=== PATIENT | male | born 1980 | race Caucasian/White ===

== ENCOUNTER 2018-01-08 18:27 | Emergency (ER) | payer OTHER ==
[~2018-01-08] VITALS: Ht 177.8 cm; Wt 74.8 kg
[2018-01-08 19:13] LABS: ABSOLUTE BASOPHIL COUNT 0.1 /CUMM (0.0-0.2); ABSOLUTE EOSINOPHIL COUNT 0.2 /CUMM (0.0-0.7); ABSOLUTE GRANULOCYTE CT 2.3 /CUMM (1.4-6.5); ABSOLUTE LYMPH COUNT 2.7 /CUMM (1.2-3.4); ABSOLUTE MONOCYTE COUNT 0.8 /CUMM (0.10-0.60); BASOPHIL % 0.8 % (0.0-2.0); EOSINOPHIL % 3.4 % (0-5); HEMATOCRIT 47.1 % (42-52); MEAN CORPUSCULAR HGB 35.1 PG (27.0-31.0); MEAN CORPUSCULAR HGB CONC 34.4 G/DL (33.0-37.0); MEAN CORPUSCULAR VOLUME 101.9 FL (80.0-94.0); MEAN PLATELET VOLUME 8.8 FL (7.4-10.4); PLATELET COUNT 206 /CUMM (130-400); RBC DISTRIBUTION WIDTH 12.9 % (11.5-14.5); RED BLOOD CELL CT 4.62 /CUMM (4.70-6.10); WHITE BLOOD CELL COUNT 6.2 /CUMM (4.8-10.8)
--- NOTE | 2018-01-08 20:08 | ED GENERAL ADULT ---
History of Present Illness General Chief Complaint: ETOH/Drug Related Complaint Stated Complaint: BIBA FOR ETOH Source: patient Exam Limitations: no limitations Vital Signs & Intake/Output Vital Signs & Intake/Output Vital Signs Date Time Temp Pulse Resp B/P B/P Pulse O2 O2 Flow FiO2 Mean Ox Delivery Rate 01/09 0636 98.0 76 18 115/61 98 Room Air 01/09 0600 98.0 76 18 115/61 01/09 0250 98.1 70 16 132/80 97 Room Air 01/09 0200 98.1 70 16 132/80 01/08 2254 97.9 71 20 117/78 98 Room Air 01/08 2048 97.7 94 20 130/82 100 Room Air 01/08 1829 97.2 82 15 124/79 94 Room Air Room Air ED Intake and Output 01/09 0000 01/08 1200 Intake Total Output Total Balance Patient 165 lb Weight Weight Estimated Measurement Method Allergies Coded Allergies: No Known Allergies (01/08/18) Triage Note: PT BIBA FROM HOME ON POLICE PAPER FOR ETOH AND LAC TO R HAND. PT CALM AND COOPERATIVE ON ARRIVAL. DENIES DRUG USE. Triage Nurses Notes Reviewed? yes HPI: 37-year-old male with no past medical history presenting with alcohol intoxication. Patient was brought in by police earlier tonight after they were called by the patient's . Per the patient he was drinking 2 beers IPAs with his last drink at 2 PM today. He states that his came home and found him drinking and she became very angry. She told him she would call the certified legal secretary specialist and she locked him out of the house. The patient tried to enter the home through the garage at which time he sustained a minor last duration to his right forearm. He states he sat down in the garage and waited for the police to arrive calmly. Patient does admit that his drinking is a problem however he feels fully functional. 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 He reports drinking every 3 days or so. He reports consuming 4-5 beers in 1-2 drinks of whiskey on these days. He states he usually drinks alone and has been doing so for the past 6-8 months. He denies any history of alcohol withdrawal including any alcohol withdrawal seizures. He has never attended an alcohol rehab or gone through any detox. He states he did notify his primary care physician Devonte Jordan MD. They have been working together to find an IOP for the patient. He states he has 2 possible locations with intake appointment set up both January 17 and . He states that his has told him he has a drinking problem and that she requires he attended rehab. Although patient does not feel his drinking is to this level he is in agreement to go to an outpatient rehab. Patient states he would like to be discharged tonight back home after his laceration is attended to so that he can proceed with his outpatient plans for alcohol rehab. He denies any recent illness or any other medical issues at this time. Of note patient does report taking Xanax as needed for sleep. He states he receives this from his PCP. (Estefania Lozoya MD) Past History Travel History Traveled to [place] past 21 day No Medical History Neurological: NONE EENT: NONE Cardiovascular: NONE Respiratory: NONE Gastrointestinal: NONE Hepatic: NONE Renal: NONE Musculoskeletal: NONE Psychiatric: NONE Endocrine: NONE Blood Disorders: NONE Cancer(s): NONE TOOL AND DIE ENGINEER/Reproductive: NONE Isolation History: Standard Psychosocial History Where do you live Home Who do you live with Spouse Services at Home None What is your primary language Belgian Tobacco Use: Current Daily Use Daily Tobacco Use Amount/Type: => 5 Cigarettes daily ETOH Use: denies use (4-5 beers/1-2 whiskey drinks), heavy use Illicit Drug Use: denies illicit drug use (Estefania Lozoya MD) Medical History Any Pertinent Medical History? see below for history Surgical History Surgical History: non-contributory Family History Hx Contributory? No (Fabrizio Humphries MD) Review of Systems Review of Systems Constitutional: Reports: no symptoms. EENTM: Reports: no symptoms. Respiratory: Reports: no symptoms. Cardiovascular: Reports: no symptoms. GI: Reports: no symptoms. Genitourinary: Reports: no symptoms. Musculoskeletal: Reports: no symptoms. Skin: Reports: no symptoms. Neurological/Psychological: Reports: see HPI, confusion. Hematologic/Endocrine: Reports: no symptoms. Immunologic/Allergic: Reports: no symptoms. All Other Systems: Reviewed and Negative (Fabrizio Humphries MD) Physical Exam Physical Exam General Appearance: well developed/nourished, alert, awake, anxious, intoxicated Head: atraumatic, normal appearance Eyes: Bilateral: normal appearance, PERRL, EOMI. Ears, Nose, Throat: normal pharynx, normal ENT inspection, hearing grossly normal Neck: normal inspection, supple, full range of motion, no midline tenderness Respiratory: normal breath sounds, chest non-tender, no respiratory distress, quiet respiration, lungs clear Cardiovascular: regular rate/rhythm, normal peripheral pulses, norml femoral pulses equa Peripheral Pulses: 4+ carotid (R), 4+ carotid (L) Gastrointestinal: normal bowel sounds, soft, non-tender, no organomegaly Back: normal inspection, normal range of motion Extremities: normal capillary refill, normal range of motion, no edema, Superficial right forearm laceration Neurologic/Psych: no motor/sensory deficits, awake, alert, oriented x 3, normal gait, normal mood/affect, animal scientist II-XII nml as tested Reflexes: 2+: bicep (R), bicep (L). Skin: normal color Lymphatic: no anterior cervical bjorn Core Measures ACS in differential dx? No CVA/TIA Diagnosis: No Sepsis Present: No Sepsis Focused Exam Completed? No (Kristel TANG,Fabrizio) Progress Differential Diagnoses I considered the following diagnoses in my evaluation of the patient: [etoh abuse/intoxication, small superficial lac to right forearm] 21:09 will irrigate superficial laceration to right forearm and apply Steri- Strips. Patient informed that while he is intoxicated he will need to remain in the emergency department until sober. At this time he is not suicidal or homicidal. Will recheck alcohol levels in a few hours and reassess at that time for suicidal ideation. Patient is cooperative and is in agreement with this process. Will plan to discharge patient home once his alcohol level is 80 or below and no suicidal ideation. Plan of Care: Orders Procedure Date/time Status Regular Diet 01/09 B Active Continuous Observation Monitor 01/08 1830 Active URINE DRUGS OF ABUSE 01/08 1830 Complete ETHANOL 01/08 1830 Complete COMPREHENSIVE METABOLIC PANEL 01/08 1830 Complete CBC WITHOUT DIFFERENTIAL 01/08 1830 Complete ED CRISIS PSYCH CONSULT 01/08 1830 Active Laboratory Tests 01/08/18 1902: Anion Gap 10, Estimated GFR > 60, BUN/Creatinine Ratio 9.0, Glucose 84, Calcium 9.7, Total Bilirubin 0.3, AST 91 H, ALT 146 H, Alkaline Phosphatase 52, Total Protein 7.7, Albumin 5.0, Globulin 2.7, Albumin/Globulin Ratio 1.9, CBC w Diff NO MAN DIFF REQ, RBC 4.62 L, MCV 101.9 H, MCH 35.1 H, MCHC 34.4, RDW 12.9, MPV 8.8, Gran % 38.0 L, Lymphocytes % 44.4, Monocytes % 13.4 H, Eosinophils % 3.4, Basophils % 0.8, Absolute Granulocytes 2.3, Absolute Lymphocytes 2.7, Absolute Monocytes 0.8 H, Absolute Eosinophils 0.2, Absolute Basophils 0.1, Serum Alcohol 268.0 01/08/18 1850: Urine Opiates Screen < 100, Methadone Screen < 40, Barbiturate Screen < 60, Ur Phencyclidine Scrn < 6.00, Amphetamines Screen < 100, U Benzodiazepines Scrn < 85, Urine Cocaine Screen < 50, Urine Cannabis Screen < 5.00 (Estefania Lozoya MD) Differential Diagnoses I considered the following diagnoses in my evaluation of the patient: Initial ED EKG: none (Fabrizio Humphries MD) Departure Departure Condition: Stable Referrals: Gerard Jordan MD (PCP/Family) (Estefania Lozoya MD) Departure Disposition: HOME OR SELF CARE Clinical Impression Primary Impression: Alcohol abuse with intoxication Secondary Impressions: Laceration of forearm, right Departure Forms: Customer Survey DETOX FACILITIES LIST General Discharge Information Resident Co-Sign Statement Statement: ED Attending supervision documentation- x I saw and evaluated the patient. I have also reviewed all the pertinent lab results and diagnostic results. I agree with the findings and the plan of care as documented in the Resident's documentation. [] I have reviewed the ED Record and agree with the Resident's documentation. [] Additions or exceptions (if any) to the Resident's note and plan are summarized below: [] (Fabrizio Humphries MD) Departure Comments 01/09/18 The patient was signed out to me by Dr. Humphries. He has been seen evaluated and cleared by crisis. He is comfortable with the discharge plan and will follow-up at [facility]. (Fredi Bob DO) Procedures Laceration/Wound Repair Laceration/Wound Repair: Wound Location: upper extremity Wound's Depth, Shape: linear Wound Length (cm): 1.5 Wound Explored: clean, irrigated extensively Irrigated w/ Saline (ccs): 200 Betadine Prep? Yes Anesthesia: 1% lidocaine Volume Anesthetic (ccs): 3 Wound Debrided: minimal Wound Repaired With: sutures Suture Size/Type: 5:0, nylon Number of Sutures: 2 Layer Closure? No Sterile Dressing Applied: Yes Splint Applied? No Tetanus Status: up to date (TODAY) (Uche LUCAS,Richard) Critical Care Note Critical Care Note Critical Care Time: non-applicable (Fabrizio Humphries MD) Critical Care Time: non-applicable (Fabrizio Humphries MD)
--- NOTE | 2018-01-09 08:47 | ED PSYCH CRISIS CONSULTATION ---
Crisis Consult Basic Assessment Date of Consult: 01/09/18 Responsible Person/Accompanied By: self Insurance Authorization: Insurance #1: Insurance name: [employer] C&A Phone number: Policy number: [id number] Group number: Authorization number: ED Provider: Patient's ED Provider: Estefania Lozoya MD Primary Care Physician: Patient's PCP: Gerard Jordan MD PCP's Current Psychiatrist: none Chief Complaint: ETOH/Drug Related Complaint Patient's Quote: "I drank too much and my came home from work and locked me out" Present Illness: Pt is a 37 year old male BIBA on PEER for being intoxicated and being "very depressed". Pt's BAL was 268 upon arrival to the ED. Patient was seen this morning by crisis. Pt states yesterday he was drinking, his came home from work, they got into an arguement about his drinking, she locked him out of the house and called the police. Pt states this is not the first time is has locked him out of the house. He states the last time, he slept in his car as he' s not confrontational. What is new, is that she called the police. Patient has been for 3 years and they have a 2 year old daughter who was napping during this incident. He states they never have any arguements in front of their child, door are always closed. He states his mom and dad fought a lot when he was a kid before they got so he stated he would never be like that around his own child. Pt states there is never any physical alteractions between he and his . The major reason for their martial discord is related to the patient's increased drinking. 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 Pt states he used to like his job but it got stressful working 60-70 hours per week so he left. Pt states his father and step mother came up from [facility] last week to visit. He states it was a good visit and he had not drank at all while they were staying with him. His parents left on Saturday and he started drinking again yesterday. He drinks mostly liquor (vodka w/ juice) as he states beer makes him full and wine makes him sick. He states that he is unsure of the number of drinks he has because he looses count and after a while "it just hits him". Pt states he hasn't blacked out his college. He has no signs of withdrawal, no hx ofs seizures and CIWA is currently 0. Pt states he sought help to stop drinking from his PCP. He states the PCP assessed him for not needing detox and told him to get into an IOP. Pt states he has two appointments set up at [place] and at [place] (01/17 and 01/20, respectively) . He stated he wanted to do both intakes to see which one was better. However, now that he's here in the ED he is stating he would prefer to go to [place] as he lives in [place]. Pt denies SI/HI/AH/VH. Pt does have a cut on the top of his right wrist that is bandaged. When asked how that happened he said he broke glass trying to get back into the house. (Dr. Bob will provide 1 stitch to wound prior to discharge). When asked if it was a self harm attempt, pt stated, "isn't it in the wrong spot ?" then quickly apologized and stated he was sorry for being sarcastic. Pt denies past mental health treatment and past substance abuse treatment. Pt denies family mental health history, family history of suicide of substance abuse problems. He does state that [place] and referred to his father's community as a frat house. Crisis completed C-SSRS. Pt has the following risk factors: not recieving treatment, substannce dep. Pt has the following protective factors: identifies reason for living, responsibility to others/living with others, supportive network/family. Pt's protective factors greatly outweight his risk factors. Crisis discussed case with Dr. Sanchez, prescription eyeglass maker psychiatrist. Pt to be discharged to IOP intake. Crisis called our IOP to see if a sooner appointment is avialable and was informed that his appointment next Saturday (01/17) is the soonest appt as they are booked into January at this point. Pt to discharge to [facility] on 01/17/18 @ 10:00 a.m. Patient's [address]: [address] [place] [address] Other Phone Number: Who Do You Live With? Father Family/Informants Interviewed: attempted to reach , Diane Jacobo . No answer. Allergies - Coded Allergies: No Known Allergies (01/08/18) Laboratory Results: Laboratory Tests 01/08/18 1902: Anion Gap 10, Estimated GFR > 60, BUN/Creatinine Ratio 9.0, Glucose 84, Calcium 9.7, Total Bilirubin 0.3, AST 91 H, ALT 146 H, Alkaline Phosphatase 52, Total Protein 7.7, Albumin 5.0, Globulin 2.7, Albumin/Globulin Ratio 1.9, CBC w Diff NO MAN DIFF REQ, RBC 4.62 L, MCV 101.9 H, MCH 35.1 H, MCHC 34.4, RDW 12.9, MPV 8.8, Gran % 38.0 L, Lymphocytes % 44.4, Monocytes % 13.4 H, Eosinophils % 3.4, Basophils % 0.8, Absolute Granulocytes 2.3, Absolute Lymphocytes 2.7, Absolute Monocytes 0.8 H, Absolute Eosinophils 0.2, Absolute Basophils 0.1, Serum Alcohol 268.0 01/08/18 1850: Urine Opiates Screen < 100, Methadone Screen < 40, Barbiturate Screen < 60, Ur Phencyclidine Scrn < 6.00, Amphetamines Screen < 100, U Benzodiazepines Scrn < 85, Urine Cocaine Screen < 50, Urine Cannabis Screen < 5.00 Past History Past Medical History Neurological: NONE EENT: NONE Cardiovascular: NONE Respiratory: NONE Gastrointestinal: NONE Hepatic: NONE Renal: NONE Musculoskeletal: NONE Psychiatric: alcohol dependence Endocrine: NONE Blood Disorders: NONE Cancer(s): NONE INSURANCE SALES REPRESENTATIVE/Reproductive: NONE Past Surgical History Surgical History: non-contributory Psychosocial History Strengths/Capabilities: Pt sought out treatment on his own supportive father and step mother Physical Limitations (Interventions): none observed Psychiatric Treatment History Psych Treatment Psychiatric Treatment No Diagnosis by History: none Substance Use/Abuse History Drug Use/Abuse Substances Used/Abused Yes Substance Used/Abused Alcohol First Use 21 Last Used 01/08/18 How much used/taken pt is unsure How often increasing to daily For how long increased recently Route of use po Substance Abuse Treatment Substance Abuse Treatment Past Substance Abuse [place] No Current Mental Status Mental Status Orientation: Person, Place, Situation Affect: Appropriate Speech: Normal Neuro-vegetative: Loss of Interest Appearance Appearance- Dress/Hygiene: pt presents in hospital scrubs no remarkable features Behaviors Thought Process: WNL Thought Content: WNL Memory: WNL Insight: Fair SI/HI Risk Assessment Past Suicidal Ideation/Attempts No Current Suicidal Ideation/Att No Past Homicidal Ideation/Att: No Current Homicidal Ideation/Attempts No Degree of Intent: None Gravely Disabled: Poor Impulse Control Risk Factors: substance abuse, poor impulse control, male Lethality Ratin PTSD Checklist PTSD Done? patient declined ED Management Sitter: Yes Restraints: No DSM5/PS Stressors/Medical Prob Diagnosis' (DSM 5, Stressors, Medical): F10.20 Alcohol Use Disorder F32.9 Unspecified Depressive Disorder Stressors: recently left job due to stress at job, martial discord Current GAF: 45 Departure Disposition Psych Medical Clearance Date: 01/09/18 Medically Cleared at: 0730 Time Started: 0737 Time Ended: 0757 Psychiatrist Consulted: Dr. Christina Sanchez Date Disposition Established: 01/09/18 Time Disposition Established: 804 Plan for Disposition - Modality: IOP Facility: [facility] Follow-up Appt Date: 01/17/18 Follow-Up Appt Time: 1000 Rationale for Disposition: Pt to ED on PEER for etoh intoxication and domestic issue (not physical, verbal alteracation only). Pt is expressing some sadness related to how ETOH has impacted his life- left job due to stress and increased ETOH use, marital discord related to martial disorder. Pt denies SI/HI/AH/VH. Pt to follow up with IOP. Referrals Gerard Jordan MD (PCP/Family)
[2018-01-09 09:11] VITALS: BP 112/70
== END 2018-01-09 09:11 ==
LOC: ERH 18:27
PROVIDERS: Physician Assistant Medical
DX: S51.811A Laceration without foreign body of right forearm, initial encounter (principal); F10.129 Alcohol abuse with intoxication, unspecified; X58.XXXA Exposure to other specified factors, initial encounter; Y92.9 Unspecified place or not applicable; Y93.89 Activity, other specified
CPT/HCPCS: 80307; G0463; G0480; J2001

== ENCOUNTER 2018-01-10 21:59 | Emergency (ER) | payer OTHER ==
[~2018-01-10] VITALS: Ht 182.9 cm; Wt 83.9 kg
--- NOTE | 2018-01-10 22:03 | ED AMS/SEIZURE/WEAK/DIZZY ---
History of Present Illness General Chief Complaint: ETOH/Drug Related Complaint Stated Complaint: BIBA WITH ETOH Source: patient Exam Limitations: intoxication Vital Signs & Intake/Output Vital Signs & Intake/Output Vital Signs Date Time Temp Pulse Resp B/P B/P Pulse O2 O2 Flow FiO2 Mean Ox Delivery Rate 01/11 0315 97.8 89 18 122/64 96 Room Air 01/10 2257 Room Air 01/10 2225 98.6 104 18 127/68 95 Room Air ED Intake and Output 01/11 0000 01/10 1200 Intake Total 300 Output Total Balance 300 Intake, Oral 300 Patient 185 lb Weight Weight Reported by Patient Measurement Method Allergies Coded Allergies: No Known Allergies (01/08/18) Triage Nurses Notes Reviewed? yes Onset: Gradual Duration: hour(s): Timing: recent history Injury Environment: home Severity: moderate Modifying Factors: Improves With: rest. HPI: 37 yo gentleman presents volunatrily after argument with . "My doesn't like it when I drink.... We got into an argument... She called the police... They said I could go to the hospital or to usp.... I feel fine... I am not suicidal... I have a beautiful daughter and a lot to live for. " He has never had withdrawal seizures or symptoms. He drinks mainly in evenings 3-4 times per week. He denies other drugs. He notes that he is concerned about his drinking. He attended an AA meeting yesterday and is scheduled to enroll in an IOP program next week. He is otherwise well. Past History Travel History Traveled to [place] past 21 day No Medical History Any Pertinent Medical History? see below for history Neurological: NONE EENT: NONE Cardiovascular: NONE Respiratory: NONE Gastrointestinal: NONE Hepatic: NONE Renal: NONE Musculoskeletal: NONE Psychiatric: alcohol dependence Endocrine: NONE Blood Disorders: NONE Cancer(s): NONE BODY SHOP SUPERVISOR/Reproductive: NONE Tetanus Vaccine: 01/09/18 Surgical History Surgical History: non-contributory Psychosocial History Who do you live with Father Services at Home None What is your primary language Romansh Family History Hx Contributory? No Review of Systems Review of Systems Constitutional: Reports: no symptoms. EENTM: Reports: no symptoms. Respiratory: Reports: no symptoms. Cardiovascular: Reports: no symptoms. GI: Reports: no symptoms. Genitourinary: Reports: no symptoms. Musculoskeletal: Reports: no symptoms. Skin: Reports: no symptoms. Neurological/Psychological: Reports: no symptoms. Hematologic/Endocrine: Reports: no symptoms. Immunologic/Allergic: Reports: no symptoms. All Other Systems: Reviewed and Negative Physical Exam Physical Exam General Appearance: well developed/nourished, no apparent distress Head: atraumatic, normal appearance Eyes: Bilateral: normal appearance. Ears, Nose, Throat: normal pharynx, normal ENT inspection Neck: normal inspection, supple, full range of motion Respiratory: normal breath sounds, chest non-tender, no respiratory distress, quiet respiration, lungs clear Cardiovascular: regular rate/rhythm Gastrointestinal: normal bowel sounds, soft, non-tender, no organomegaly Back: normal inspection, normal range of motion Extremities: normal range of motion Neurologic/Psych: no motor/sensory deficits, awake, alert, oriented x 3 Skin: intact, normal color, warm/dry Core Measures ACS in differential dx? No CVA/TIA Diagnosis No Sepsis Present: No Sepsis Focused Exam Completed? No Progress Differential Diagnosis: alcohol intoxication Plan of Care: Orders Procedure Date/time Status URINE DRUG SCREEN FOR ER ONLY 01/12 132 Active ETHANOL 01/10 2215 Complete COMPREHENSIVE METABOLIC PANEL 01/10 2215 Complete CBC WITHOUT DIFFERENTIAL 01/10 2215 Complete Laboratory Tests 01/10/18 222: Anion Gap 13, Estimated GFR > 60, BUN/Creatinine Ratio 7.5, Glucose 88, Calcium 9.4, Total Bilirubin 0.5, AST 71 H, ALT 121 H, Alkaline Phosphatase 64, Total Protein 8.1, Albumin 5.0, Globulin 3.1, Albumin/Globulin Ratio 1.6, CBC w Diff NO MAN DIFF REQ, RBC 4.72, MCV 100.9 H, MCH 34.9 H, MCHC 34.6, RDW 12.8, MPV 8.7, Gran % 59.7, Lymphocytes % 28.4, Monocytes % 9.0, Eosinophils % 2.1, Basophils % 0.8, Absolute Granulocytes 4.8, Absolute Lymphocytes 2.3, Absolute Monocytes 0.7 H, Absolute Eosinophils 0.2, Absolute Basophils 0.1, Serum Alcohol 293.0 01/10/182214: Methadone Screen Cancelled, Barbiturate Screen Cancelled, Ur Phencyclidine Scrn Cancelled, Amphetamines Screen Cancelled, U Benzodiazepines Scrn Cancelled, Urine Cocaine Screen Cancelled, Urine Cannabis Screen Cancelled Initial ED EKG: none Departure Departure Disposition: STILL A PATIENT Condition: Stable Clinical Impression Primary Impression: Alcohol intoxication Referrals: Gerard Jordan MD (PCP/Family) Departure Forms: Customer Survey General Discharge Information Comments 01/11/18, 6:11am... pt breathylized 0.12... will hold patient until sober... pt to be signed out to dr. haywood at 7am.
[2018-01-10 22:29] LABS: ABSOLUTE BASOPHIL COUNT 0.1 /CUMM (0.0-0.2); ABSOLUTE EOSINOPHIL COUNT 0.2 /CUMM (0.0-0.7); ABSOLUTE GRANULOCYTE CT 4.8 /CUMM (1.4-6.5); ABSOLUTE LYMPH COUNT 2.3 /CUMM (1.2-3.4); ABSOLUTE MONOCYTE COUNT 0.7 /CUMM (0.10-0.60); BASOPHIL % 0.8 % (0.0-2.0); EOSINOPHIL % 2.1 % (0-5); HEMATOCRIT 47.6 % (42-52); MEAN CORPUSCULAR HGB 34.9 PG (27.0-31.0); MEAN CORPUSCULAR HGB CONC 34.6 G/DL (33.0-37.0); MEAN CORPUSCULAR VOLUME 100.9 FL (80.0-94.0); MEAN PLATELET VOLUME 8.7 FL (7.4-10.4); PLATELET COUNT 223 /CUMM (130-400); RBC DISTRIBUTION WIDTH 12.8 % (11.5-14.5); RED BLOOD CELL CT 4.72 /CUMM (4.70-6.10); WHITE BLOOD CELL COUNT 8.1 /CUMM (4.8-10.8)
[2018-01-10 22:30] LABS: GRANULOCYTE % 59.7 % (42.2-75.2)
[2018-01-11 06:44] VITALS: BP 102/60
== END 2018-01-11 07:49 ==
LOC: ERH 21:59
PROVIDERS: Pediatrics
DX: F10.129 Alcohol abuse with intoxication, unspecified (principal)
CPT/HCPCS: 80307; G0480